=== PATIENT | female | born 1935 | race Caucasian/White ===

== ENCOUNTER 2018-10-30 14:26 | Inpatient (IN) | payer MEDICARE ==
[~2018-10-30 14:26] MED LIST: ISOVUE-370 76%-LOCM 1 ML ONE
[2018-10-30 16:00] LABS: #Eosinphils 0.1 thou/uL (0.0-0.7); #Lymphocytes 0.8 thou/uL (1.20-3.40); #Monocytes 0.8 thou/uL (0.11-0.59); %Basophils 0.3 % (0.0-1.0); %Eosinophils 0.7 % (0.0-10.0); %Lymphocytes 8.2 % (21.0-51.0); %Monocytes 8.6 % (0.0-10.0); %Neutrophils 82.3 % (42.0-75.0); Hemoglobin 13.3 g/dL (14.0-18.0); Mean Corpuscular HGB CONC 31.5 g/dL (32.0-36.0); Mean Corpuscular Hemoglobin 31.3 pg (27.0-31.0); Mean Corpuscular Volume 99.3 fL (78.0-98.0); Mean Platelet Volume 8.6 fL (7.4-10.4); Platelet Count 231 thou/uL (130-400); RBC Distribution Width 13.9 % (11.5-14.5); Red Blood Cell (RBC) Count 4.26 mill/uL (4.70-6.10); White Blood Cell (WBC) Count 9.7 thou/uL (4.8-10.8)
[2018-10-30 16:25] LABS: ALT (SGPT) 10 U/L (8-55); AST (SGOT) 21 U/L (5-34); Albumin 3.5 g/dL (3.4-4.8); Alkaline Phosphatase 62 U/L (40-150); Anion Gap 20 mmol/L (10-20); BUN (Urea Nitrogen) 35 mg/dL (8.4-25.7); Bilirubin, Total 1.2 mg/dL (0.2-1.2); Calc. Creatinine Clearance 0 mL/min (70-130); Calcium 11.3 mg/dL (7.8-10.44); Carbon Dioxide 29 mmol/L (23-31); Chloride 95 mmol/L (98-107); Estimated GFR-MDRD 63; Globulin 3.4 g/dL (2.4-3.5); Glucose 119 mg/dL (83-110); Lipase 30 U/L (8-78); Potassium 4.8 mmol/L (3.5-5.1); Protein, Total 6.9 g/dL (5.8-8.1); Sodium 139 mmol/L (136-145)
--- NOTE | 2018-10-30 16:38 | RAD ---
CHEST 1 VIEW: Date: 10/30/18 HISTORY: Cancer patient. Weakness. COMPARISON: 10/08/18. FINDINGS: There is atherosclerosis of the aorta. There is bilateral hilar fullness, right greater than left. Ob scuration of the left hemidiaphragm due to pleural and parenchymal changes. No pneumothorax or osseou s abnormalities. IMPRESSION: 1. Bilateral perihilar fullness. 2. Pleural and parenchymal changes in the left lung base. POS: AMA
--- NOTE | 2018-10-30 16:43 | CT ---
HEAD CT WITHOUT CONTRAST: Date: 10/30/18 HISTORY: Weakness. Altered mental status. COMPARISON: None. FINDINGS: No parenchymal hemorrhage. No extra-axial hematoma. No midline shift. Basilar cisterns are patent. Br ain volume, age-appropriate. Cortical ram-white matter differentiation preserved. No evidence of hydrocephalus. White matter hypodensities due to chronic small vessel ischemic change. Calvarium is intact. Adequate aeration of the sinuses and mastoid air cells. There is cavernous carotid atherosclerosis. IMPRESSION: No acute intracranial process. POS: SUZY
[2018-10-30] MEDS ORDERED: cefTRIAXone\\ROCEPHIN 1 GM VIAL ONE (16:44)
[2018-10-30] MEDS ORDERED: Sodium Chloride 0.9% 100 ML ONE (16:44)
[2018-10-30 17:21] LABS: Bilirubin Small (Negative); Blood, Urine Large (Negative); Glucose, Urine (Dipstick) Negative (Negative); Leukocyte Moderate (Negative); Nitrite Negative (Negative); Protein, Urine (Dipstick) 30 mg/dL (Neg-Trace); Urobilinogen 0.2 mg/dL (0.2-1.0); pH, Urine 5.5 (5.0-9.0)
[2018-10-30 17:24] LABS: Clarity Cloudy (Clear); Specific Gravity, Urine 1.015 (1.002-1.036)
[2018-10-30 17:39] LABS: Bacteria/HPF 1+ HPF (None Seen); Hyaline Casts/LPF NONE SEEN LPF (0-3 Hyaline); Transitional Epithelial 0-3 HPF (0-3)
--- NOTE | 2018-10-30 18:28 | CT ---
CT ABDOMEN AND PELVIS WITH INTRAVENOUS CONTRAST: HISTORY: Abdominal pain. COMPARISON: 10/08/2018 FINDINGS: ABDOMEN: This examination shows significant progression of disease since the prior examination. The re is now a small left-sided effusion. There is atelectasis in the left base. There is a pleural-ba sed, 13 mm nodule along the right lateral thoracic wall, which is very suspicious for a pleural-based mass, with a small right pleural effusion, some of which appears slightly loculated. There is a sig nificant change in size of some subdiaphragmatic notes, which were less than a centimeter on the prio r examination and now measure as much as 12 mm in short axis dimension. There is also a markedly enl arged node, barely perceptible on the prior examination, now measuring 18 mm in size, just lateral to the distal esophagus. There is significant progression of the lymphadenopathy within the abdomen. There are small gastrohepatic lymph nodes seen on the prior examination, now significantly increased in size, as well as parapancreatic nodes. An enlarged retrocrural node has changed from approximatel y 9 mm to a node measuring 19 mm in size. There has been an increase in the periaortic and aortocava l adenopathy and a significant progression in the mesenteric adenopathy, as compared to the prior exa mination. The liver, spleen, pancreas, and gallbladder regions appear unremarkable. The right and left adrenal glands and the right and left kidneys are normal in size. No obstruction of either kidney. PELVIS: The uterus appears unchanged since the prior examination. The adenopathy within the pelvis is fairly similar to the previous exam. Inguinal nodes also appear fairly similar. IMPRESSION: Significant progression in the lymphadenopathy, as discussed above. POS: AMA
[2018-10-30] MEDS ORDERED: Aspirin Chewable 81 MG TAB ONE (18:58)
[2018-10-30 20:02] LABS: Troponin I 0.014 ng/mL (< 0.028)
[2018-10-30] MEDS ORDERED: Ondansetron PF 4 MG/2 ML Vial IVP PRN (20:25)
[2018-10-30] MEDS ORDERED: Sodium Chloride 0.9% 1,000 ML IV SCH (20:25)
[2018-10-30] MEDS ORDERED: Ondansetron ODT 4 MG TAB SL PRN (20:25)
[2018-10-30] MEDS: Sodium Chloride 0.9% 1,000 ML IV SCH (22:15)
[2018-10-30 22:26] LABS: Lactic Acid 2.1 mmol/L (0.5-2.2)
[2018-10-30 22:56] LABS: Troponin I 0.012 ng/mL (< 0.028)
[2018-10-30] MEDS ORDERED: cefTRIAXone\\ROCEPHIN 1 GM in Sodium Chloride 0.9% 100 ML IVPB SCH (23:00)
[2018-10-30 23:21] VITALS: BMI 36.3
[2018-10-31 05:07] LABS: #Eosinphils 0.1 thou/uL (0.0-0.7); #Lymphocytes 0.8 thou/uL (1.20-3.40); #Monocytes 1.1 thou/uL (0.11-0.59); #Neutrophils 7.7 thou/uL (1.40-6.50); %Basophils 0.3 % (0.0-1.0); %Eosinophils 0.6 % (0.0-10.0); %Lymphocytes 8.1 % (21.0-51.0); %Monocytes 10.9 % (0.0-10.0); %Neutrophils 80.1 % (42.0-75.0); Hemoglobin 12.3 g/dL (12.0-16.0); Mean Corpuscular HGB CONC 30.9 g/dL (32.0-36.0); Mean Corpuscular Hemoglobin 31.1 pg (27.0-31.0); Mean Platelet Volume 8.6 fL (7.4-10.4); Platelet Count 206 thou/uL (130-400); RBC Distribution Width 14.1 % (11.5-14.5); Red Blood Cell (RBC) Count 3.94 mill/uL (4.20-5.40); White Blood Cell (WBC) Count 9.6 thou/uL (4.8-10.8)
[2018-10-31 05:29] LABS: ALT (SGPT) Less than 7 U/L (8-55); AST (SGOT) 19 U/L (5-34); Albumin 3.2 g/dL (3.4-4.8); Alkaline Phosphatase 54 U/L (40-150); Anion Gap 16 mmol/L (10-20); BUN (Urea Nitrogen) 36 mg/dL (9.8-20.1); Bilirubin, Total 0.7 mg/dL (0.2-1.2); Calc. Creatinine Clearance 59 mL/min (70-130); Calcium 10.3 mg/dL (7.8-10.44); Carbon Dioxide 28 mmol/L (23-31); Chloride 100 mmol/L (98-107); Estimated GFR-MDRD 47; Globulin 3.1 g/dL (2.4-3.5); Glucose 111 mg/dL (83-110); Potassium 4.5 mmol/L (3.5-5.1); Protein, Total 6.3 g/dL (6.0-8.3); Sodium 139 mmol/L (136-145)
[2018-10-31] MEDS: Sodium Chloride 0.9% 1,000 ML IV SCH (05:39)
[2018-10-31] MEDS: Diltiazem 125 MG in Sodium Chloride 0.9% 100 ML IVPB SCH (05:44)
--- NOTE | 2018-10-31 07:18 | HP ---
CHIEF COMPLAINT: Shortness of breath. HISTORY OF PRESENT ILLNESS: She is an 83-year-old woman with history of atrial fibrillation, diabetes, lymphoma, lung cancer, hypothyroidism, presented from alf because she was discharged from there and is supposed to go home, but she was feeling generally weak and her next chemo is due soon. She also complained of belly pain, abdominal pain, and shortness of breath. She was tachycardic in the ER, 120, atrial fibrillation with RVR, and also urine showed urinary tract infection and sepsis protocol initiated in the ER, sepsis with UTI. The patient is a very poor historian. PAST MEDICAL HISTORY: History of hypertension, diabetes, lymphoma in the back, lung cancer, umbilical hernia, hypothyroidism. PAST SURGICAL HISTORY: Right hip and repair. MEDICATIONS: In the ER, she got; 1. DuoNeb. 2. Aspirin. 3. Rocephin 1 g. PERSONAL HISTORY: Denies any drug use. No smoking history and no alcohol history. REVIEW OF SYSTEMS: CONSTITUTIONAL: She does have generalized weakness. No fever, no chills. EYES: She denies eye pain, any vision changes. ENT: She denies any rhinorrhea or sore throat. CARDIOVASCULAR: She does have palpitation. No chest pain. RESPIRATORY: She denies cough. Does have some shortness of breath. GI: Some abdominal pain. No nausea, no vomiting, no diarrhea. No hematemesis or melena. MUSCULOSKELETAL: She does have some back pain. Denies any joint pain. SKIN: No rash. NEUROLOGIC: No focal deficit. No headache. HEME/LYMPHATIC: Normal hematological/lymphatic system review. PHYSICAL EXAMINATION: GENERAL: When I examined her, she is an elderly woman, lying in the bed, not in any distress. VITAL SIGNS: Pulse was in 80s to 90s, blood pressure 117/70, respiratory rate 20, temperature 98.4. HEENT: Head is atraumatic, normocephalic. Pupils are round and reactive. Extraocular muscles are intact. Ear, nose, and throat, normal. Tongue, mucosa moist. NECK: Supple. No JVD. No thyromegaly. CHEST: Has normal diminished breath sounds in bases. No crackles, no wheezing. CVS: S1 and S2, audible. No S3 or S4. ABDOMEN: Soft. Umbilical hernia noted. Abdomen is slightly distended, tenderness is noted in the periumbilical area. No guarding or rigidity. EXTREMITIES: +2 pedal edema. LEASE ATTENDANT: Alert x3. No focal deficits. LABORATORY DATA: Labs show WBC 9.7, hematocrit 42.3, platelets 231, MCV 99.3. Lactic acid 3.7, magnesium 1.8, troponin 0.010, TSH 0.5. Glucose 119, calcium 11.3, bilirubin 1.2, globulin 3.4, albumin 3.5, AST 21, ALT 10. Urine showed wbc more than 50. CAT scan shows she has small left pleural effusion and pleural based 30 mm nodule, pleural based mass, significant change in size. There are also marked lymph nodes, significant progression of lymphadenopathy of the abdomen, small gastric lymph nodes, size with pancreatic nodes. ASSESSMENT: 1. Sepsis with urinary tract infection. 2. Hyperglycemia. 3. Lymphoma of the chest. 4. Carcinoma, lung. 5. Atrial fibrillation with rapid ventricular response, converted to sinus rhythm. PLAN: 1. Sepsis with UTI. Continue IV fluid. Sepsis protocol initiated. IV Rocephin 1 g daily. Follow blood culture and urine culture. 2. Hyperglycemia, possibly secondary to malignancy. Oncology consulted. 3. CA lung with lymphoma. Oncology consulted. 4. Abdominal pain, secondary to lymphoma progression. The patient may need chemo. Oncology consulted. 5. Atrial fibrillation with RVR, converted to sinus rhythm. We will monitor. 6. DVT prophylaxis with Lovenox. 7. Full code. Job ID: [id number]
[2018-10-31] MEDS ORDERED: Furosemide 20 MG/2 ML VIAL SLOW IVP SCH (08:30)
--- NOTE | 2018-10-31 08:50 | RAD ---
AP CHEST: INDICATIONS: Dyspnea. Hospital followup. COMPARISON: 10/30/2018 FINDINGS: Both CP angles are obscured, consistent with bilateral effusions. The left hemidiaphragm is obscured , consistent with left basilar atelectasis or consolidation. Soft tissue prominence in the perihilar regions is again noted, slightly more prominent on the right. Vascular markings remain upper normal . IMPRESSION: The above chest findings show no significant change from yesterday. POS: [facility]
[2018-10-31] MEDS ORDERED: Enoxaparin Sodium 40 MG/0.4 ML SYRINGE SC SCH (09:00)
[2018-10-31] MEDS ORDERED: Prevnar 13-Val Conj/PF 0.5 ML SYRINGE IM ONE (09:00)
--- NOTE | 2018-10-31 09:17 | PDOC.PN ---
- Subjective Encounter Start Date: 10/31/18 Encounter Start Time: 09:15 Mr. Carnes was seen today in follow-up of abdominal pain and AFIB. She was a bit confused this morning. She appears tachypneic. - Objective Resuscitation Status - Order Detail: 10/30/18 22:15 Resuscitation Status Routine Resuscitation Status: FULL: Full Resuscitation Discussed with: patient COLEEN Reviewed: Yes Vital Signs & Weight: Vital Signs (12 hours) Temp Pulse Resp BP Pulse Ox 10/31/18 08:48 94 L 10/31/18 08:46 107 H 20 94 L 10/31/18 07:44 97.7 F 92 22 H 108/73 96 10/31/18 04:00 97.4 F L 122 H 20 102/77 94 L Weight Weight 212 lb 2 oz I&O: 10/30/18 10/31/18 11/01/18 06:59 06:59 06:59 Intake Total 1370 Output Total 250 Balance 1120 Result Diagrams: 10/31/18 04:35 10/31/18 04:35 Phys Exam - Physical Examination HEENT: PERRLA Respiratory: no rales, no rhonchi, wheezing present + fine expiratory wheeze Cardiovascular: no significant murmur, no rub, irregular mildly tachycardic Gastrointestinal: soft, positive bowel sounds + diffuse tenderness,no rebound or guarding Musculoskeletal: pulses present, edema present Dx/Plan (1) Abdominal pain Code(s): R10.9 - UNSPECIFIED ABDOMINAL PAIN Status: Acute (2) Atrial fibrillation Code(s): I48.91 - UNSPECIFIED ATRIAL FIBRILLATION Status: Chronic (3) Large B-cell lymphoma Code(s): C85.10 - UNSPECIFIED B-CELL LYMPHOMA, UNSPECIFIED SITE Status: Chronic (4) Volume overload Code(s): E87.70 - FLUID OVERLOAD, UNSPECIFIED Status: Acute (5) Diabetes mellitus type 2 in obese Code(s): E11.69 - TYPE 2 DIABETES MELLITUS WITH OTHER SPECIFIED COMPLICATION; E66.9 - OBESITY, UNSPECIFIED Status: Chronic (6) UTI (urinary tract infection) Status: Acute - Plan * Abdominal pain- ? etiology- likely due to advancing Lymphoma- await Oncology recommendations * Atrial Fibrillation- her heart rate remains elevated- will continue Cardizem drip- re-start Carvediolol- and await Cardiology recommendations * Restart Xarelto for CVA prevention * Volume Overload- Will give a dose of Lasix and monitor the response * UTI- continue Rocephin and send urine for culture * ? COPD- will add Duonebsa.
[2018-10-31] MEDS ORDERED: Dextrose 50% Abboject 50 ML SYRINGE SLOW IVP PRN (09:20)
[2018-10-31] MEDS ORDERED: HumaLOG 300 UNITS/3 ML VIAL SC PRN ×2 (09:20)
[2018-10-31] MEDS ORDERED: Dextrose 5% in Water 1,000 ML IV PRN (09:20)
--- NOTE | 2018-10-31 13:13 | CON ---
DATE OF CONSULTATION: 10/31/2018 PRIMARY SUPERVISOR FURNACE ROOM: Dina Russo MD HISTORY OF PRESENT ILLNESS: Ms. Carnes is a pleasant 83-year-old white female, who comes to the hospital for just feeling weak and tired. She has a history of chronic atrial fibrillation, followed by Dr. Russo, on Xarelto for stroke prophylaxis and she is rate controlled. She comes in, not feeling well, diagnosed with possibly urinary tract infection and progression of her lymphoma. She was found to be in atrial fibrillation with RVR, heart rate in the 120. She was started on a diltiazem drip, and Cardiology is being consulted for this. On my evaluation, Ms. Carnes's biggest complaint is abdominal pain. She denies any palpitations. No syncope or presyncope. PAST MEDICAL HISTORY: 1. Chronic atrial fibrillation. 2. Hypertension. 3. Venous insufficiency. 4. Diabetes. 5. Lymphoma. 6. Lung mass. 7. Umbilical hernia, chronic. 8. Hypothyroidism. PAST SURGICAL HISTORY: Right hip repair. OUTPATIENT MEDICATIONS: Include: 1. Levothyroxine 175 mcg a day. 2. Escitalopram 10 mg a day. 3. Pantoprazole 40 mg a day. 4. Arthritis Pain Reliever 650 p.r.n. 5. Temazepam 50 mg p.r.n. 6. Cholestyramine. 7. Ferrous sulfate 325 daily. 8. Albuterol inhaler. 9. Nystatin topical cream. 10. Metformin 1000 mg b.i.d. 11. Carvedilol 3.125 b.i.d. 12. Xarelto 20 mg q.h.s. ALLERGIES: NO KNOWN DRUG ALLERGIES. SOCIAL HISTORY: No alcohol, tobacco, or drugs. FAMILY HISTORY: Noncontributory. REVIEW OF SYSTEMS: A 12-point review of systems was done and was found to be negative unless stated in the history of present illness. PHYSICAL EXAMINATION: VITAL SIGNS: Temperature 97.9, pulse 106, respiratory rate 25, saturating 94% on 2 L nasal cannula, blood pressure 120/67. GENERAL: Awake, alert, in mild distress. HEENT: Normocephalic, atraumatic. NECK: Supple. LUNGS: Clear. CARDIOVASCULAR: S1 and S2. No S3 or S4. There is tachycardia. Heart rate in the low one 100s. Irregularly irregular. There is a grade 2/6 systolic murmur at the right upper sternal border. ABDOMEN: Tender to palpation diffusely. No rebound or guarding. There is a moderate-sized umbilical hernia, which is tender on palpation, trying to reduce. EXTREMITIES: 1+ edema. SKIN: Warm and dry. LABORATORY DATA: Laboratory work was reviewed. CBC with a white count of 9.7, hemoglobin of 13, hematocrit 42, platelet count of 231. Chemistries unremarkable. Lactic acid was 3.7, better now at 2.1. Troponin negative x2. BNP was 97. Albumin of 3.2. Lipase of 30. TSH was normal. UA; large amount of blood, small amount of bilirubin, moderate leukocyte esterase, 11 to 20 red cells, more than 50 white cells, 1+ bacteria. ASSESSMENT: 1. Chronic atrial fibrillation, currently in rapid ventricular response. 2. Urinary tract infection. 3. Abdominal pain, likely from progression of her lymphoma. 4. Chronic anticoagulation with Xarelto. PLAN: 1. Continue Xarelto unless any surgical intervention is planned, in which case it should be safe to stop the Xarelto before procedures. 2. Continue diltiazem drip for now. Most likely, her RVR is related to her acute illness. I would expect her heart rate to get better on its own once the infection is better controlled and the pain is better controlled. Thank you for letting me to participate in the care of your patient. Dr. Russo, her primary compensation and benefits manager, will follow up in the morning. Job ID: [id number]
[2018-10-31] MEDS ORDERED: Morphine 2 MG/ML SYRINGE SLOW IVP PRN (13:31)
[2018-10-31] MEDS ORDERED: Morphine 4 MG/ML VIAL SLOW IVP PRN (15:20)
[2018-10-31] MEDS ORDERED: HYDROcodone/Acetaminophen 10/325 mg Tablet PO PRN ×2 (15:20)
[2018-10-31] MEDS: cefTRIAXone\\ROCEPHIN 2 GM in Sodium Chloride 0.9% 100 ML IVPB SCH (16:13)
[2018-10-31] MEDS: Carvedilol 6.25 MG TAB PO SCH (16:14)
--- NOTE | 2018-10-31 16:59 | CON ---
DATE OF CONSULTATION: REASON FOR CONSULT: Lymphoma. Please note that the patient has two medical record numbers. She was recently discharged from this facility and her medical record number on that visit is [id number]. HISTORY OF PRESENT ILLNESS: Ms. Carnes is a pleasant 83-year-old female, who is discharged from this facility on October 17 with diagnosis of recurrent diffuse large B-cell lymphoma. She was admitted in September for left-sided back pain. The patient underwent a biopsy of her lymph node. 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 The patient was extremely weak at the previous discharge and went to a snf. Apparently, she was discharged this past week. She had a followup appointment with Dr. Allen yesterday. However, her son brought her to the emergency room for severe weakness. Repeat CT scan compared to the one in September showed significant progression in her lymphadenopathy in her chest and abdomen. The patient was having some shortness of breath. She was admitted for further treatment. The patient was in atrial fibrillation with RVR and started on diltiazem drip. The patient was seen at bedside. She complains of shortness of breath, abdominal discomfort, and weakness. PAST MEDICAL HISTORY: 1. Relapsed diffuse large B-cell lymphoma in September 2018. 2. Atrial fibrillation. 3. Diabetes mellitus 2. 4. Hypertension. 5. High cholesterol. 6. Rheumatoid arthritis. 7. Asthma. 8. Morbid obesity. 9. Anxiety depression. 10. Hypothyroidism. PAST SURGICAL HISTORY: 1. Chest tube placement in 2013. 2. Pericardial window. 3. Multiple orthopedic surgeries. 4. Lymph node biopsy in September 2018. ALLERGIES: NO KNOWN DRUG ALLERGIES. HOME MEDICATIONS: 1. Coreg 3.125 mg b.i.d. 2. Escitalopram 10 mg daily. 3. Lasix 40 mg daily. 4. Levothyroxine 175 mcg daily. 5. Protonix 40 mg daily. 6. MiraLAX daily. 7. Potassium chloride 10 mEq daily. 8. Pravachol daily. 9. Xarelto daily. 10. Spironolactone 25 mg daily. 11. Temazepam daily. 12. Tramadol p.r.n. FAMILY HISTORY: Mother had cervical cancer. Father had a brain tumor. She had a child with ovarian cancer. SOCIAL HISTORY: , lives with her son. No alcohol, tobacco, or illicit drug use. REVIEW OF SYSTEMS: Ten-point review of systems is negative except for noted in HPI. PHYSICAL EXAMINATION: VITAL SIGNS: Temperature is 97.4, pulse is 107, respiratory rate 20, blood pressure is 129/74, and she is 93% on 2.5 L. GENERAL: This is a chronically ill-appearing female, in no acute distress. HEENT: Normocephalic, atraumatic. Pupils are equal and reactive to light. NECK: Supple. CV: Regular rate and rhythm. LUNGS: Diminished throughout. ABDOMEN: Obese, tender to palpation around her umbilicus. There is no rebound. EXTREMITIES: No clubbing, cyanosis, or edema. SKIN: No rash. HEMATOLOGICAL: No petechiae or purpura. LYMPH: She has palpable lymph nodes in her axilla and inguinal areas. PSYCH: The patient is alert and oriented. PERTINENT LABS AND X-RAYS: Current WBCs are 9.6, hemoglobin 12.3, hematocrit 39.7, platelet count is 206,000, 80% neutrophils, 8% lymphocytes. Sodium is 139, potassium 4.5, chloride 100, CO2 is 28, BUN is 36, creatinine 1.1, lactic acid is 2.1, calcium 10.3, total bilirubin is 0.7, AST is 19, ALT is less than 7, alkaline phosphatase is 54, serum total protein 63, albumin 3.2, and globulin 3.1. Urine shows 1+ bacteria with moderate leukocyte esterase. Radiology, per HPI. ASSESSMENT: 1. Relapsed diffuse large B-cell lymphoma with progression over the last month. 2. Severe deconditioning. 3. Atrial fibrillation with rapid ventricular response. DISCUSSION: The case has been discussed with Dr. Allen. Given the patient's high-grade lymphoma and significant progression over the last few weeks as well as her severe deconditioning, our recommendation is hospice. I discussed with the patient that chemotherapy would be poorly tolerated and likely no longer provide much benefit. She agreed. I spoke with León, her son, who agrees that she would not tolerate any chemotherapy. I have asked the Palliative Care Team to see the patient to discuss code status. I will consult Case Management to provide hospice information to her son. She may be a candidate for her inpatient facility. Thank you for the consult. Job ID: [id number] [facility]
[2018-10-31] MEDS ORDERED: Furosemide 40 MG/4 ML VIAL ONE (17:03)
[2018-10-31 17:05] LABS: Hemoglobin 11.8 g/dL (12.0-16.0); Platelet Count 213 thou/uL (130-400)
--- NOTE | 2018-10-31 17:26 | PDOC.EVN ---
Event Note - Event Note Event Note: A code green was called, as the patient's respiratory status has worsened through the day. She is still tachypneic. I spoke with the patient's son over the phone. The patient has advanced Lymphoma, which has progressed as evidenced by the CT scan done in the ER. He was seen by the Oncology team, and it was felt she would not benefit from further chemotherapy. The patient and the son had been considering Hospice care. After discussing the current situation with the patient he made the decision to change her code status to DNR. He would want palliative BiPAP through the night. He plans to speak with the Hospice team tomorrow. ACP 30 minutes
[2018-10-31 18:06] LABS: Actual Bicarbonate (HCO3a) 31.6 mEq/L (22-28); Analyzer IN Cardio OR; Base Excess (BEa) 1.9 mEq/L (-2.0 to +3.0); Calcium, Ionized 1.33 mmol/L (1.12-1.30); Carboxyhemoglobin (COHb) 1.3 gm% (0.0-3.0); Hemoglobin (Hb) 12.5 g/dL (12.0-16.0); O2 Tension (PaO2) 77.2 mmHg (> 60.0); Potassium - ABG Lab 4.52 mmol/L (3.70-5.30); pH, Arterial 7.23 (7.35-7.45)
[2018-10-31 18:07] LABS: CO2 Tension 77.6 mmHg (35.0-45.0); Puncture Site RR
--- NOTE | 2018-10-31 23:32 | CON ---
DATE OF CONSULTATION: 10/31/2018 REASON FOR CONSULTATION: Acute hypercapnic respiratory failure. HISTORY OF PRESENT ILLNESS: Carlyle José Miguel was called on Mrs. Carnes a few minutes ago as she developed increasing respiratory distress. She was admitted late last night with shortness of breath. She had just been [facility] a stay for medical problems, Mrs. Carnes in a different hospital, I cannot find any records of previous hospitalization. PAST MEDICAL HISTORY: 1. Lymphoma. 2. Atrial fibrillation. 3. Diabetes mellitus type 2. 4. Hypertension. 5. Hyperlipidemia. 6. Rheumatoid arthritis. 7. Morbid obesity. 8. Depression. 9. Hypothyroidism. PAST SURGICAL HISTORY: 1. Chest tube placement in 2013. 2. Pericardial window. 3. Left toe biopsy. MEDICATIONS: Prior to admission; 1. Coreg. 2. Escitalopram. 3. Lasix. 4. Levothyroxine. 5. Protonix. 6. MiraLAX. 7. Potassium chloride. 8. Pravachol. 9. Xarelto. 10. Spironolactone. 11. Temazepam. 12. Tramadol. ALLERGIES: NONE. FAMILY MEDICAL HISTORY: Remarkable for cervical cancer and ovarian cancer. SOCIAL HISTORY: Nonsmoker. Does not consume alcohol. Does not use illicit drugs. Previously lives with her son. REVIEW OF SYSTEMS: Cannot be obtained as the patient is obtunded. PHYSICAL EXAMINATION: VITAL SIGNS: Temperature 97.4, pulse 107, respirations 27, O2 saturation is 93 % on 2.5 L, blood pressure 129/74. GENERAL: The patient is somewhat obtunded. HEENT: Unremarkable. NECK: No adenopathy. No JVD. LUNGS: Poor air movement without overt crackles or wheezes. CARDIAC: S1, S2. Regular. ABDOMEN: Soft, nontender. EXTREMITIES: No edema. LABORATORY DATA: White blood cell count 9.6, hematocrit 39.7, and platelet count 206. Sodium 139, potassium 4.5, chloride 100, CO2 of 28, BUN 36, creatinine 1.1 , and glucose 111. Chest x-ray shows diffuse adenopathy in her mediastinal region and hilar region. ABG showed a pH of 7.22, pCO2 of 77, and PO2 of 70. ASSESSMENT: Impending respiratory failure, hypercapnic - cause not completely clear. Narcotic medication could have some affect, but I think she just has profound neuromuscular weakness from her underlying illnesses. PLAN: Her son apparently has made her DNR. The Oncology Team did not feel the patient was an appropriate candidate for chemotherapy given rapid progression of disease. She will undergo BiPAP tonight as a palliative measure. I do not feel she will do well. Job ID: [id number] [facility]
[2018-11-01] MEDS: Diltiazem 125 MG in Sodium Chloride 0.9% 100 ML IVPB SCH (05:45)
[2018-11-01 06:19] LABS: Anion Gap 24 mmol/L (10-20); BUN (Urea Nitrogen) 52 mg/dL (9.8-20.1); Calc. Creatinine Clearance 53 mL/min (70-130); Calcium 10.6 mg/dL (7.8-10.44); Carbon Dioxide 20 mmol/L (23-31); Chloride 106 mmol/L (98-107); Estimated GFR-MDRD 42; Glucose 107 mg/dL (83-110); Sodium 144 mmol/L (136-145)
[2018-11-01 06:30] LABS: Band 2 % (5-11); Hemoglobin 12.3 g/dL (12.0-16.0); Lymphocytes 2 % (21-51); MDiff Complete? YES; Mean Corpuscular HGB CONC 30.1 g/dL (32.0-36.0); Mean Corpuscular Hemoglobin 29.4 pg (27.0-31.0); Mean Corpuscular Volume 97.6 fL (78.0-98.0); Monocytes 4 % (0-10); Neutrophil 92 % (42-75); Nucleated RBC 1 % (0); Platelet Count 175 thou/uL (130-400); Platelet Morphology Comment Appears Adequate; RBC Distribution Width 14.3 % (11.5-14.5); RBC Morphology Normal; Red Blood Cell (RBC) Count 4.18 mill/uL (4.20-5.40); White Blood Cell (WBC) Count 8.8 thou/uL (4.8-10.8)
--- NOTE | 2018-11-01 08:28 | PRG ---
DATE OF SERVICE: 11/01/2018 TIME SPENT: 35 minutes of critical care time. SUBJECTIVE: The patient remains on BiPAP. She complains of a dry mouth. OBJECTIVE: VITAL SIGNS: On exam, temperature is 97.2, pulse 86, blood pressure 108/73, and O2 sat 97%. A 24-hour intake 58 mL, output 410 mL. HEENT: Unremarkable. NECK: No JVD. LUNGS: Poor air movement. CARDIAC: S1 and S2, regular. ABDOMEN: Soft, distended. EXTREMITIES: No edema. LABORATORY DATA: White blood cell count 8.8, hematocrit 40.8, and platelet count 175. Sodium 144, potassium 6.0, chloride 106, CO2 of 20, BUN 52, creatinine 1.2, glucose 107, and calcium 10.6. ASSESSMENT: 1. Acute respiratory failure requiring noninvasive mechanical ventilation. The main issue here is likely profound neuromuscular weakness from underlying lymphoma. 2. Failure to thrive. 3. Lymphoma that is not felt to be treatable. 4. Hyperkalemia, which may be a spurious result and the potassium needs to be repeated. PLAN: Decrease the pressure on her BiPAP and hopes of weaning that off. I am not certain that we are going to be able to achieve that. I do think the emphasis needs to be more on palliative care measures as there does not seem to be reasonable intervention that is going to restore her health. Job ID: [id number]
[2018-11-01 08:29] LABS: Potassium 4.5 mmol/L (3.5-5.1)
[2018-11-01] MEDS: Carvedilol 6.25 MG TAB PO SCH (08:46)
[2018-11-01 08:47] VITALS: BP 99/75
[2018-11-01] MEDS ORDERED: Polyethylene Glycol 3350 17 GM Packet PO SCH (09:00)
[2018-11-01] MEDS ORDERED: Rivaroxaban 10 MG TAB PO SCH (09:00)
[2018-11-01] MEDS ORDERED: Escitalopram Oxalate 10 mg Tablet PO SCH (09:00)
--- NOTE | 2018-11-01 09:15 | PDOC.PN ---
- Subjective Encounter Start Date: 11/01/18 Encounter Start Time: 09:13 Ms. Carnes was seen today in follow-up of respiratory failure, and advanced Lymphoma. she is now on BIPAP. She does not have any complaints. - Objective Resuscitation Status - Order Detail: 10/31/18 17:30 Resuscitation Status Routine Resuscitation Status: DNAR: NO Resuscitation Discussed with: Discussed with the patient's son COLEEN Reviewed: Yes Vital Signs & Weight: Vital Signs (12 hours) Temp Pulse BP Pulse Ox 11/01/18 08:46 99/75 11/01/18 08:00 97.6 F 11/01/18 07:56 91 98 11/01/18 07:30 97 11/01/18 03:00 97.2 F L 11/01/18 02:00 74 10/31/18 21:26 88 Weight Admit Weight 212 lb 2 oz Weight 212 lb 2 oz Most Recent Monitor Data Heart Rate from ECG 89 NIBP 110/74 NIBP BP-Mean 86 Respiration from ECG 28 SpO2 97 I&O: 10/31/18 11/01/18 11/02/18 06:59 06:59 06:59 Intake Total 1370 58.4 Output Total 250 410 35 Balance 1120 -351.6 -35 Result Diagrams: 11/01/18 05:55 11/01/18 08:01 Additional Labs: Accuchecks 11/01/18 10/31/18 10/31/18 05:46 21:43 17:01 POC Glucose 100 108 120 H 10/31/18 10/31/18 16:52 10:47 POC Glucose 115 H 113 H Phys Exam - Physical Examination HEENT: PERRLA Respiratory: no wheezing, no rales, no rhonchi, clear to auscultation bilateral Cardiovascular: RRR, no significant murmur, no rub Gastrointestinal: soft, non-tender, positive bowel sounds Musculoskeletal: pulses present, edema present Dx/Plan (1) Acute respiratory failure with hypoxemia Code(s): J96.01 - ACUTE RESPIRATORY FAILURE WITH HYPOXIA Status: Acute (2) Abdominal pain Code(s): R10.9 - UNSPECIFIED ABDOMINAL PAIN Status: Acute (3) Atrial fibrillation Code(s): I48.91 - UNSPECIFIED ATRIAL FIBRILLATION Status: Chronic (4) Large B-cell lymphoma Code(s): C85.10 - UNSPECIFIED B-CELL LYMPHOMA, UNSPECIFIED SITE Status: Chronic (5) Volume overload Code(s): E87.70 - FLUID OVERLOAD, UNSPECIFIED Status: Acute (6) Diabetes mellitus type 2 in obese Code(s): E11.69 - TYPE 2 DIABETES MELLITUS WITH OTHER SPECIFIED COMPLICATION; E66.9 - OBESITY, UNSPECIFIED Status: Chronic (7) UTI (urinary tract infection) Status: Acute - Plan * Acute respiratory failure- she was placed in the ICU on BIPAP. * AFIB- her heart rate is stable * Advanced Lymphoma- Oncology input appreciated, she is not a good candidate for chemotherapy * She is now DNR, and awaiting Hospice evaluation.
--- NOTE | 2018-11-01 12:48 | EKG ---
Test Reason : Blood Pressure : / mmHG Vent. Rate : 106 BPM Atrial Rate : 133 BPM P-R Int : 000 ms QRS Dur : 076 ms QT Int : 310 ms P-R-T Axes : 000 027 240 degrees QTc Int : 411 ms Atrial fibrillation with rapid ventricular response Low voltage QRS Nonspecific T wave abnormality , probably digitalis effect Abnormal ECG When compared with ECG of 30-OCT-2018 15:10, (Unconfirmed) No significant change was found Confirmed by DR. Gris BREWER ([id number]) on 11/01/2018 12:48:07 PM Referred By: EBONY Confirmed By:DR. Gris BREWER
[2018-11-01 13:33] VITALS: TEMP 98
[2018-11-01] MEDS: cefTRIAXone\\ROCEPHIN 2 GM in Sodium Chloride 0.9% 100 ML IVPB SCH (15:53)
== END 2018-11-01 18:17 | disposition hospice, inpatient (51) | DRG 871 ==
LOC: ERS 14:26 → EDSEX 14:26 → ERHOLD 19:45 → 2NO 20:15 → CCU 10-31 17:17
PROVIDERS: ADMIT Emergency Medicine; ATTEND Emergency Medicine
PROC: 5A09357 Assistance with Respiratory Ventilation, Less than 24 Consecutive Hours, Continuous Positive Airway Pressure (ICD-10-PCS; principal; 2018-10-31)
DX: A41.9 Sepsis, unspecified organism (principal); J96.01 Acute respiratory failure with hypoxia; N39.0 Urinary tract infection, site not specified; C85.80 Other specified types of non-Hodgkin lymphoma, unspecified site; C34.90 Malignant neoplasm of unspecified part of unspecified bronchus or lung; E11.65 Type 2 diabetes mellitus with hyperglycemia; I10 Essential (primary) hypertension; E87.70 Fluid overload, unspecified; I48.2 Chronic atrial fibrillation; E03.9 Hypothyroidism, unspecified; E78.00 Pure hypercholesterolemia, unspecified; M06.9 Rheumatoid arthritis, unspecified; E66.01 Morbid (severe) obesity due to excess calories; Z68.36 Body mass index [BMI] 36.0-36.9, adult; E87.5 Hyperkalemia; R62.7 Adult failure to thrive
CPT/HCPCS: 36415; 36416; 51701; 70450; 71045; 74177; 80048; 80053; 81003; 81015; 82805; 83605; 83690; 83735; 83880; 84443; 84484; 85025; 87040; 87077; 87086; 87186; 87804; 93005; 93010; 94640; 94660; 96361; 96365; A4353; J0696; J1650; J1940; J2270; J7050; J7620; Q9966